=== PATIENT | male | born 1990 | race African-American/Black ===

== ENCOUNTER 2019-03-01 14:41 | Inpatient (IN) ==
[2019-03-01] MEDS ORDERED: NS 1,000 ML IV ONE ×2 (15:07→17:18)
[2019-03-01] MEDS ORDERED: DILAUDID IV ONE (15:18)
--- NOTE | 2019-03-01 15:26 | PROVIDER DOCUMENTATION ---
HPI-General Adult - General Chief Complaint: Abnormal Lab[s] Stated Complaint: LOW H&H Time Seen by Provider: 03/01/19 15:05 Source: patient Allergies/Adverse Reactions: Patient Allergies Allergy/AdvReac Type Severity Reaction Status Date / Time prednisone Allergy Unknown Verified 05/24/18 09:11 Home Medications: Home Medication List Medication Instructions Recorded Confirmed Last Taken Type Folic Acid 1 mg PO DAILY 06/27/17 03/01/19 01/06/19 History Hydroxyurea [Hydrea] 500 mg PO BID 06/27/17 03/01/19 01/06/19 History Cyclobenzaprine [Flexeril] 5 mg PO HS 05/24/18 03/01/19 01/05/19 History Hydrocodone/Acetaminophen [[place] 1 tab PO Q8H PRN PRN 10/15/18 03/01/19 01/06/19 History 10-325 Tablet] Fentanyl 12.5 each PO Q3DAYS 01/06/19 03/01/19 Unknown History - History of Present Illness -Gen Adult Nature of Presenting Problems: HPI: Pt reports to ED after PCP sent him here from hemoglobin of 3.3. Pt has PMH of sickel cell disease and crisis. He states that he he has had diffuse joint and body pain for the past month, was evaluated bt Dr eckert in late january, his H&H was above 7, and recieved 3 units of blood transfusion. He complained that his norco was not working, the next week, they started him on dilaudid but he suffered migraines, constipation, SOB and worsening of his fatigue. His Rx was changed again to percocet, but he contiuned to have fatigue, not able to walk up stairs in his house, SOB, feeling diffuse pain all over his body. His l;ast [place] cisis was jul 2018. Location of Pain/Injury: reports: head, upper extremity, lower extremity, generalized Pain Radiation: reports: arm(s), back, feet, legs (lower), shoulder(s), legs (upper) Quality of Pain: reports: aching, burning, cramping, dull Severity: reports: moderate Onset/Duration: reports: other (1 month) Context/Activities at Onset: reports: none Modifying Factors: improves with: movement. worse with: analgesics Associated Symptoms: reports: anxiety, arm pain, back/neck pain, constipation, fatigue, headaches, malaise, muscle aches Similar Symptoms Previously?: Yes Recently seen or treated by another doctor?: Yes Review of Systems - Adult - REVIEW OF SYSTEMS - ADULT Constitutional: reports: no symptoms reported Eyes: reports: no symptoms reported Ears, Nose, Mouth & Throat: reports: no symptoms reported Cardiovascular: reports: no symptoms reported Respiratory: reports: see HPI, shortness of breath Gastrointestinal: reports: no symptoms reported Genitourinary: reports: no symptoms reported Musculoskeletal: reports: see HPI, joint pain, muscle weakness Integumentary: reports: no symptoms reported Neurological: reports: no symptoms reported Psychiatric: reports: no symptoms reported Endocrine: reports: no symptoms reported Hematologic/Lymphatic: reports: no symptoms reported Allergic/Immunologic: reports: no symptoms reported All Other Systems: Reviewed and Negative Past History - Adult - PAST MEDICAL HISTORY-ADULT Review of Records: reports: Old Records Reviewed, Nursing Assessment Review, Medications Reviewed, Social history reviewed & non-contributory. Major Childhood Illnesses: reports: denies history Cardiovascular: reports: denies history Respiratory: reports: denies history Gastrointestinal: reports: GERD Obstetrical/Gynecological: reports: denies history Genitourinary: reports: denies history Musculoskeletal: reports: denies history Neurological: reports: denies history Endocrine/Immune: reports: Sickle Cell disease Sickle Cell Genotype:: Unknown Other Conditions: reports: denies history - PRIOR SURGERIES/PROCEDURES Surgical/Procedure History: reports: none - PRIOR HOSPITALIZATIONS Prior Hospitalizations: reports: for similar symptoms - IMMUNIZATION STATUS Childhood Immunizations: See Nurse Assessment Flu Vaccine: See Nurse Assessment - FAMILY HISTORY Family History: reviewed, not pertinent - SOCIAL HISTORY Smoking: denies Substance Use: none/never Alcohol Use Frequency: never Living Situation: family Physical Exam-General - PHYSICAL EXAM-ADULT Initial Vital Signs Reviewed: Yes - CONSTITUTIONAL General Appearance: appears well, alert - EYES Eyes: pink conjunctivae. negative: sclera injected, scleral icterus, subconjunctival hemorrhage - HEAD, EARS, NOSE, MOUTH & THROAT HENMT: normocephalic/atraumatic, moist mucous membranes, normal ENT inspection - NECK Neck: non-tender, full range of motion, supple - RESPIRATORY Respiratory: chest non-tender, lungs clear, normal breath sounds, no pleuratic chest pain. negative: crackles, rales, rhonchi, stridor, wheezing - CARDIOVASCULAR Cardiovascular: normal peripheral pulses, regular rate, rhythm, no edema - GASTROINTESTINAL (ABDOMEN) Abdominal Exam: normal bowel sounds, non tender, soft, no organomegaly. negative: distended, guarding, rigid, rebound, tenderness - LYMPHATIC Lymphatic: no adenopathy - MUSCULOSKELETAL Back Exam: decreased range of motion Extremity: normal inspection, calf tenderness, tenderness. negative: non- tender, normal gait - SKIN Integumentary: normal color, normal turgor, warm/dry - NEUROLOGIC Neurologic: grossly normal - PSYCHIATRIC Psych/Mental Status: normal mood/affect, normal thought content, normal thought process Progress - PLAN OF CARE/RESULTS Progress/Plan/Lab Results: Vital Signs - 8 hr 03/01/19 15:05 Temperature 98.8 F Pulse Rate 82 Respiratory Rate 20 Blood Pressure 133/84 O2 Sat by Pulse Oximetry 99 Orders Category Date Time Status Saline Loc NOW Care 03/01/19 15:05 Active CHEST-2 VIEWS [RAD] Stat Exams 03/01/19 15:05 Ordered BLOOD CULTURE [BLDCUL] Stat Lab 03/01/19 15:09 Uncollected CBC WITH ELECTRONIC DIFF [HEME] Stat Lab 03/01/19 15:05 Uncollected COMPREHENSIVE METABOLIC PANEL [CHEM] Stat Lab 03/01/19 15:05 Uncollected PRBC [LRPC (RED CELLS)] [BBK] Stat Lab 03/01/19 15:19 Uncollected PROTIME WITH INR [COAG] Stat Lab 03/01/19 15:18 Uncollected PTT [COAG] Stat Lab 03/01/19 15:18 Uncollected RETIC COUNT [HEME] Stat Lab 03/01/19 15:05 Uncollected TYPE & SCREEN [BBK] Stat Lab 03/01/19 15:18 Uncollected UA [URINALYSIS W/POSS RFLX CULT] [URINALYSIS] Stat Lab 03/01/19 15:09 Uncollected 0.9% Sodium Chloride Inj [Ns] 1,000 ml Med 03/01/19 15:07 Active IV 999 mls/hr Hydromorphone [Dilaudid] Med 03/01/19 15:18 Discontinued 1 mg IV NOW ONE EKG [EKG] Stat Ther 03/01/19 15:05 Ordered Result Diagrams: 03/01/19 15:20 03/01/19 15:20 - EKG 1 Time of EKG reading by physician:: 16:19 EKG Read and Signed by:: Micheal Butler EKG Interpretation (*Must complete 3 of following elements*): Normal Rate: 76 [place]: normal QRS: normal [place] Interval: normal ST Wave: normal Prior EKG Comparison: unchanged from prior - CONSULTS/PCP/HOSPITALIST Notification #1 *Consult/PCP/Hospitalist*: Jes SARMIENTO Time Discussed: 16:41 Consult Disposition: Admit Departure - Departure Date of Disposition Decision: 03/01/19 Time of Disposition Decision: 16:41 DIAGNOSIS: Acute sickle cell crisis Disposition: ADMITTED INPATIENT 09 Certified Medical Emergency: Emergent Condition: Stable - Critical Care Note This patient required my direct & personal management of CC.: No Attestation - Physician/ XAVIER Attestation Patient care was provided by Advanced Practice Provider:: No The physician spent face to face time with patient:: Yes Advanced Practice Provider documentation review:: Supervising physician onsite and consulted in the evaluation and care of this patient. The physician did have a face to face encounter with the patient.
[2019-03-01 16:11] LABS: URINE SOURCE CLEAN CATCH
[2019-03-01 16:20] LABS: BILIRUBIN URINE NEGATIVE (NEGATIVE); BLOOD URINE NEGATIVE (NEGATIVE); COLOR YELLOW; GLUCOSE URINE NEGATIVE (NEGATIVE); KETONE URINE NEGATIVE (NEGATIVE); LEUKOCYTES URINE NEGATIVE (NEGATIVE); NITRITE URINE NEGATIVE (NEGATIVE); PROTEIN URINE NEGATIVE (NEGATIVE); SP GRAVITY URINE 1.005; TURBIDITY URINE CLEAR (CLEAR); UROBILINOGEN URINE NORMAL (NORMAL)
[2019-03-01 16:23] LABS: AGAP 10; ALB/GLOB RATIO 0.8; ALBUMIN 3.7 g/dL (3.5-5.0); ALKALINE PHOSPHATASE 128 U/L (32-122); BUN 6 mg/dL (8-22); CALCIUM 8.4 mg/dL (8.8-10.2); CHLORIDE 104 mmol/L (98-107); COSMO 269; CREATININE 0.8 mg/dL (0.7-1.2); GLUCOSE 96 mg/dL (70-104); GOT 23 U/L (10-34); GPT 22 U/L (10-44); POTASSIUM 3.4 mmol/L (3.5-5.1); SODIUM 136 mmol/L (136-145); TCO2 22 mmol/L (25-35); TOTAL BILIRUBIN 0.62 mg/dL (0.20-1.00); TOTAL PROTEIN 8.1 g/dL (6.3-8.3)
[2019-03-01 16:26] LABS: INR 1.03; PROTIME 14.4 Seconds (11.0-16.0)
[2019-03-01 16:27] LABS: PTT 32.7 Seconds (22.3-41.8)
[2019-03-01 16:28] LABS: UR EPITHELIAL CELLS <10 /HPF (<10); URINE BACTERIA NEGATIVE /HPF; URINE RBC <10 /HPF (<10); URINE WBC <10 /HPF (<10)
[2019-03-01 16:29] LABS: HEMATOCRIT 9.7 % (42.0-52.0); LYMPH# 2.15 X1000 (1.2-3.4); LYMPH% 77.1 % (20.5-51.1); MCH 34.7 PG (27-31); MCHC 35.1 g/dL (33-37); MONO# 0.19 X1000 (0.11-0.59); MONO% 6.8 % (1.7-9.3); MPV 10.9 FL (7.4-10.4); NEUT% 16.1 % (42.2-75.2); PLT 116 X1000 (130-400); RETIC% 3.53 % (0.8-2.1); RETIC-HE 29.8 PG (28.2-36.6); WBC 2.79 X1000 (4.8-10.8)
[2019-03-01 16:30] LABS: HEMOGLOBIN 3.4 g/dL (14.0-18.0)
[2019-03-01] MEDS ORDERED: TYLENOL PO PRN (17:25)
[2019-03-01] MEDS ORDERED: ZOFRAN IV PRN (17:25)
[2019-03-01] MEDS ORDERED: NORCO-7.5 PO PRN (17:25)
--- NOTE | 2019-03-01 17:30 | Diag Imaging Result Doc PS360 ---
EXAM: CHEST-2 VIEWS INDICATION: Sickle cell pt low H H TECHNIQUE: 2 views COMPARISON: 06/27/2017 FINDINGS: The lungs are grossly clear. There is no discrete pleural fluid collection or pneumothorax. The cardiomediastinal silhouette and central vasculature are grossly unremarkable. IMPRESSION: No evidence of acute pathology by plain radiograph. Electronically signed by Thiago Mahan 03/01/2019 5:28 PM
[2019-03-01] MEDS ORDERED: NORCO-10 PO PRN (18:41)
[2019-03-01] MEDS ORDERED: NS 2,000 ML IV ONE (19:09)
[2019-03-01 19:15] LABS: FERRITIN 1214 ng/mL (30-400)
[2019-03-01] MEDS ORDERED: DILAUDID IV PRN (20:00)
[2019-03-01] MEDS: DILAUDID IV PRN (20:36)
--- NOTE | 2019-03-01 20:36 | HISTORY AND PHYSICAL ---
PRIMARY CARE PROVIDER: No one. PRIMARY DIAMOND SAWER: Dr. Porras. CHIEF COMPLAINT: Shortness of breath, chest pain and headache, along with weakness. HISTORY OF PRESENT ILLNESS: Mr. Norman Crawford is a 28-year-old male with a medical history of sickle cell disease who presents with 1-month complaints of significant shortness of breath, headache and chest pain, along with weakness. He states that last month his hemoglobin was 7, and he did not want to receive blood, but on average he receives blood about once every other month. They decided to do IV fluids at that time, and he said that that made him feel better, but the pain he was having in the knee joints and elbow joints along with the chest was starting to get worse. They added oral Dilaudid, which he felt like did not help. They tried Percocet, which he felt helped a little bit better, but really the only thing that helped was when he received IV fluids, but it would not last. Today he went to Dr. Porras's office and was found to have a hemoglobin of 3 and was sent here. He also states that he has had subjective fevers for at least 1-2 weeks, waking up in cold sweats, coughing up clear to green phlegm. A chest x-ray does not show anything acute. Likely all of his symptoms are due to the low hemoglobin. He also has some complaints of constipation, and we will treat that as well. We will admit him to the CICU for close observation, given the complaints of chest pain that he is having with it. PAST MEDICAL HISTORY: 1. Sickle cell anemia. 2. Sickle cell hepatopathy. PAST SURGICAL HISTORY: Cholecystectomy. SOCIAL HISTORY: Denies tobacco, alcohol or illicit drug use. Single. Lives alone in [place]. Unemployed. FAMILY HISTORY: Both parents with sickle cell disease. Mother is . Father is still living. He has a brother with sickle cell trait. Otherwise, he states there are no other medical conditions that run in the family. ALLERGIES: Steroids. He states these cause him to get dehydrated and start a crisis. HOME MEDICATIONS: 1. Fentanyl 12.5 mg transdermal every 3 days. 2. Flexeril 5 mg p.o. nightly. 3. Folic acid 1 mg p.o. daily . 4. Hydroxyurea 500 mg p.o. twice daily. 5. [place] 10, 1 tab p.o. every 4 hours p.r.n. REVIEW OF SYSTEMS: A 14-point review of systems was completed. All are negative except for those mentioned in the above HPI. PHYSICAL EXAMINATION: VITAL SIGNS: Temperature 98.0, heart rate 81, respiratory rate 18, blood pressure 127/70, O2 saturation 99% on room air. GENERAL: Mr. Norman Crawford is a 28-year-old male. He is in no acute distress. He is able to answer questions appropriately. HEENT: Atraumatic, normocephalic. Pupils equal, round, and reactive to light. Extraocular movements intact. Mucous membranes are dry. NECK: Trachea midline. CARDIOVASCULAR: S1 and S2. Regular rate and rhythm. No rubs, gallops or murmurs. No lower extremity edema and +2 dorsalis and radial pulses. Negative for JVD or carotid bruits. PULMONARY: Clear to auscultate. Bilateral breath sounds. No accessory muscle use or work of breathing noted. GI: Soft, nontender, nondistended. Positive bowel sounds x4. EXTREMITIES: Moves all extremities equally. Full range of motion. NEUROLOGIC: A O x3. Follows commands. Sensory is intact. SKIN: Warm, dry and intact. LABORATORY DATA: White blood cells 2000, hemoglobin 3.4, hematocrit 9.7, platelet count 116. INR is 1.03. Sodium 136, potassium 3.4, BUN 6, creatinine 0.8, glucose 96. Calcium 8.4, bilirubin 0.62. AST 23, ALT 22, albumin 3.7. Urinalysis negative. IMAGING: Chest x-ray: no evidence of acute pathology. ASSESSMENT/PLAN: 1. Sickle cell crisis with hemoglobin of 3.4. He will be getting 2 units of packed red blood cells. He normally gets a blood transfusion every other month. He states he had a hemoglobin of 7 last month. Given the symptoms that are going along with it, like the shortness of breath and the chest pain, we will watch him in the cardiac intensive care unit for transfusion. His vital signs are stable. 2. Complaints of constipation. Will add a stool softener. 3. Pain control for the sickle cell crisis will include his transdermal fentanyl 12.5 every 3 days, [place] 10 every 8 hours p.r.n., and Dilaudid for breakthrough pain at 1 mg IV every 3 hours. He is also going to be on his hydroxyurea. Dr. Porras is consulted. Dictated by GUILLERMINA Aguilar for Dilshad Braga MD cc: GUILLERMINA Aguilar MD I agree with most components of history, physical, assessment and plan. A separate addendum has been dictated. MTDD
--- NOTE | 2019-03-01 20:53 | HISTORY AND PHYSICAL ---
ADDENDUM: I agree with most components of history, physical, assessment and plan. In brief Mr. Crawford is 28 years old man with past medical history of sickle cell disease with frequent priapism who has been experiencing little aches and pains in his body though not like the sickle cell crisis he usually experiences for a month and he had a routine appointment with his canine deputy as an outpatient. When he was evaluated, he was found to have hemoglobin of less than 4 and so he was advised to come to the emergency room for admission. SUBJECTIVE: At the time of my evaluation he complains of little bit of body ache but not a lot. Vitals suggest temperature of 98 degrees, pulse of 86, respiratory 22, blood pressure 160/87, saturating 99% on room air. PHYSICAL EXAMINATION: Well-built man not in acute distress. Significant conjunctival pallor. No cyanosis, clubbing or icterus. Air entry bilateral equal. No wheeze, rhonchi, crackles. S1, S2 normal. No murmur or gallop. Abdomen is soft. No hepatosplenomegaly. No lower extremity edema. LABS: Suggestive of pancytopenia with neutrophil count less than 500 for which I would put him on neutropenic precautions, hypokalemia. He had 2 units of blood transfusion ordered. ASSESSMENT AND PLAN: 1. Pancytopenia likely because of sickle cell crisis with bone marrow involvement. 2. Chronic pain. PLAN: I will continue hydration of the patient with intravenous fluids. Will follow up with CBC after blood transfusion. We will keep him on his home pain medication regimen with fentanyl patch, [place] as well as IV pain medication. Plan of care discussed with the patient. All of his questions have been answered satisfactorily. cc: Dilshad Braga MD MTD
[2019-03-01 20:56] LABS: IRON SATURATION 96 %; TIBC 247 ug/dL; TOTAL IRON 237 ug/dL (53-167); UNBOUND IRON 10 ug/dL (112-346)
[2019-03-01] MEDS ORDERED: FLEXERIL PO SCH (21:00)
[2019-03-01] MEDS: HYDREA PO SCH (22:40)
[2019-03-01] MEDS: PERICOLACE PO SCH (22:41)
[2019-03-02] MEDS: DILAUDID IV PRN ×6 (01:16→20:33)
[2019-03-02 01:55] LABS: HEMATOCRIT 16.1 % (42.0-52.0); HEMOGLOBIN 5.4 g/dL (14.0-18.0)
[2019-03-02 05:55] LABS: INR 1.01; PROTIME 14.2 Seconds (11.0-16.0); PTT 30.1 Seconds (22.3-41.8)
[2019-03-02 06:10] LABS: AGAP 11; ALB/GLOB RATIO 0.7; ALBUMIN 3.2 g/dL (3.5-5.0); ALKALINE PHOSPHATASE 114 U/L (32-122); BUN 7 mg/dL (8-22); CALCIUM 8.2 mg/dL (8.8-10.2); CHLORIDE 107 mmol/L (98-107); COSMO 275; CREATININE 0.6 mg/dL (0.7-1.2); ESTIMATED GFR > 60; GLUCOSE 91 mg/dL (70-104); GOT 20 U/L (10-34); GPT 19 U/L (10-44); LDH 266 U/L (135-225); MAGNESIUM 1.7 mg/dL (1.5-2.7); POTASSIUM 3.9 mmol/L (3.5-5.1); SODIUM 139 mmol/L (136-145); TCO2 21 mmol/L (25-35); TOTAL BILIRUBIN 1.62 mg/dL (0.20-1.00); TOTAL PROTEIN 7.5 g/dL (6.3-8.3)
[2019-03-02 06:18] LABS: HEMATOCRIT 18.6 % (42.0-52.0); HEMOGLOBIN 6.5 g/dL (14.0-18.0); LYMPH# 2.14 X1000 (1.2-3.4); LYMPH% 83.6 % (20.5-51.1); MCH 31.3 PG (27-31); MCHC 34.9 g/dL (33-37); MCV 89.4 FL (81-99); MONO# 0.11 X1000 (0.11-0.59); MONO% 4.3 % (1.7-9.3); MPV 11.5 FL (7.4-10.4); NEUT# 0.31 X1000 (1.4-6.5); NEUT% 12.1 % (42.2-75.2); PLT 107 X1000 (130-400); RBC 2.08 XMIL (4.7-6.1); RDW 20.1 % (11.5-14.5); WBC 2.56 X1000 (4.8-10.8)
--- NOTE | 2019-03-02 08:31 | EKG Report ---
Test Performed on : 03/01/2019 4:19:06 PM Test Reason : sickel cell crisis Blood Pressure : / mmHG Vent. Rate : 076 BPM Atrial Rate : 076 BPM P-R Int : 156 ms QRS Dur : 080 ms QT Int : 398 ms P-R-T Axes : 051 030 034 degrees QTc Int : 447 ms Normal sinus rhythm. with sinus arrhythmia. Normal ECG When compared with ECG of 28-JUN-2017 15:14, Vent. rate has increased BY 29 BPM Unconfirmed Result
[2019-03-02] MEDS ORDERED: FOLIC ACID PO SCH (09:00)
--- NOTE | 2019-03-02 13:02 | PROGRESS NOTE ---
DATE: 03/02/2019 INTERVAL HISTORY: Mr. Crawford received 2 units of blood transfusion overnight following which his hemoglobin had increased to 6.5. He did not have any reaction. SUBJECTIVE: He is feeling fine. Denies any complaints. VITALS: Temperature 98.1 degrees, pulse 94, and respiratory rate 18. His blood pressure is 116/73 and saturating 100% on room air. PHYSICAL EXAMINATION: Not in any acute distress. Mild conjunctival pallor. No cyanosis, clubbing, or icterus. Oral cavity is moist.Lungs: Air entry bilaterally equal. No wheeze, rhonchi or crackles. Heart: S1, S2 normal. No murmur or gallop. Abdomen: Soft, nontender. Extremities: No lower extremity edema. No hepatosplenomegaly. Neurologic: He is alert and oriented x3. LABORATORY: Suggestive of hemoglobin of 6.5, WBC of 2.5, and platelets of 107,000. ASSESSMENT AND PLAN: 1. Pancytopenia in the setting of bone marrow involvement with sickle cell crisis. 2. Chronic pain related to sickle cell crisis. 3. Constipation. PLAN: 1. He is status post 2 units PRBC with appropriate rise of CBC. I will continue his home folic acid and hydroxyurea. I will stop intravenous fluids. I will continue his home medication of fentanyl patch, cyclobenzaprine, acetaminophen and [place] for pain. I will continue senna docusate for constipation. 2. Disposition: I am awaiting Hematology recommendation. Based on that, I will consider discharging the patient today or later tomorrow. Plan of care discussed with him. All of his questions have been answered. cc: Dilshad Braga MD
[2019-03-02] MEDS: HYDREA PO SCH (16:23)
[2019-03-02] MEDS: PERICOLACE PO SCH (16:23)
[2019-03-02 19:20] LABS: HEMATOCRIT 24.2 % (42.0-52.0); HEMOGLOBIN 8.5 g/dL (14.0-18.0); LYMPH# 1.74 X1000 (1.2-3.4); LYMPH% 75.3 % (20.5-51.1); MCH 30.1 PG (27-31); MCHC 35.1 g/dL (33-37); MCV 85.8 FL (81-99); MONO# 0.23 X1000 (0.11-0.59); MPV 11.1 FL (7.4-10.4); NEUT% 14.7 % (42.2-75.2); PLT 112 X1000 (130-400); RBC 2.82 XMIL (4.7-6.1); WBC 2.31 X1000 (4.8-10.8)
[2019-03-02 19:21] LABS: NEUT# 0.34 X1000 (1.4-6.5)
[2019-03-02 20:47] VITALS: BP 123/87
--- NOTE | 2019-03-02 23:35 | DISCHARGE SUMMARY ---
ADMISSION DATE: 03/01/2019 DISCHARGE DATE: 03/02/2019 DISCHARGE DISPOSITION: Home. DISCHARGE DIAGNOSES: 1. Pancytopenia. 2. Sickle cell crises. 3. Anemia in the setting of sickle cell crisis, requiring blood transfusion. 4. Constipation. OTHER DIAGNOSES: 1. History of sickle cell disease. 2. History of multiple priapism. 3. History of cholecystectomy. CONSULTATIONS: Dr. Rafi Porras, hematology/oncology. VITALS: At the time of discharge, temperature 97.9 degrees, pulse 71, respiratory rate 16, blood pressure 130/83, saturating 97% on room air. PHYSICAL EXAMINATION: General: Obese, not in any acute distress. HEENT: Oral cavity is moist. He did have conjunctival pallor on examination early in the morning. Lungs: Air entry bilaterally equal. No wheeze, rhonchi, crackles. Cardiovascular: S1, S2 normal. No murmur, rub, or gallop. Abdomen: Soft, nontender. Neurologic: He was alert, oriented x3. LABS: Significant labs during hospital admission. On arrival, his hemoglobin was 3.4, and he has had 5 units of blood transfusion, at the time of discharge his hemoglobin had increased to more than 7. Significant microbiology lab during hospital admission, blood culture did not have any growth. IMAGING: Chest x-ray on admission did not have any acute pathology. DISCHARGE MEDICATIONS: Fentanyl 12.5 mcg patch every 3 days, cyclobenzaprine 5 mg at nighttime, folic acid 1 mg daily, hydroxyurea 500 mg b.i.d., [place] 10 one tablet every 8 hours as needed, Senn[place] docusate 1 tablet p.o. b.i.d. HOSPITAL COURSE SUMMARY: Mr. Crawford is 28 years man with history of sickle cell disease who was seen in his orchid grower, Dr. Porras's, office a month ago because of generalized body aches and pains, and he was given intravenous fluids and he was discharged home. However, his aches and pains were not getting better and there were multiple changes made in his pain medication regimen. For another scheduled visit a month later blood work was done, which had detected hemoglobin of 3.5, so he was advised to go to the emergency room for blood transfusion. He was admitted overnight, was given total of 5 units of blood. During blood transfusion, he did not have any allergic reactions. He tolerated the transfusions well. Following transfusions, his hemoglobin had increased appropriately and he was deemed appropriate for discharge. For his body aches and pains, he was continued on his home medications of narcotics and muscle relaxants. He was also given stool softeners at the time of discharge. TIME SPENT: Less than 30 minutes were spent in discharging the patient. cc: Dilshad Braag MD
[2019-03-04] MEDS ORDERED: DURAGESIC 12 MICROGM/HR PATCH TD SCH (06:00)
== END 2019-03-02 20:48 | disposition home or self-care (01) | DRG 812 ==
LOC: SUPCPDRO → ED 14:41 → EDIPHOLD 18:29
PROVIDERS: ATTEND Internal Medicine
CPT/HCPCS: 36430; 71020; 71046; 80053; 81001; 82607; 82728; 82746; 83010; 83540; 83550; 83615; 83735; 85014; 85018; 85025; 85045; 85610; 85730; 86850; 86870; 86900; 86901; 86905; 86920; 86922; 87040; 93005; 96374; 96376; 99285; A9270; J1170; J7030; P9016; S0176

== ENCOUNTER 2020-01-09 12:54 | Inpatient (IN) ==
[2020-01-09] MEDS ORDERED: NS 1,000 ML IV ONE (16:04)
--- NOTE | 2020-01-09 16:19 | PROVIDER DOCUMENTATION ---
HPI-General Adult - General Chief Complaint: Sickle Cell Crisis Stated Complaint: SORE THROAT/SICKLE CELL CRISIS Time Seen by Provider: 01/09/20 16:03 Source: patient Allergies/Adverse Reactions: Patient Allergies Allergy/AdvReac Type Severity Reaction Status Date / Time prednisone Allergy Unknown Verified 01/09/20 17:04 Home Medications: Home Medication List Medication Instructions Recorded Confirmed Last Taken Type Folic Acid 1 mg PO DAILY 06/27/17 01/09/20 01/09/20 07:00 History Cyclobenzaprine [Flexeril] 5 mg PO HS 05/24/18 01/09/20 01/08/20 21:00 History Sennosides/Docusate Sodium 1 ea PO BID #30 tab 03/02/19 01/09/20 01/09/20 07:00 Rx [Pericolace] Potassium Chloride 20 meq PO DAILY 10/04/19 01/09/20 01/09/20 07:00 History Fentanyl 50 mcg SUBDERMAL Q3D 12/12/19 01/09/20 01/09/20 07:00 History Oxycodone HCl/Acetaminophen 1 tab PO Q6H PRN 12/12/19 01/09/20 01/09/20 12:00 History [Oxycodone-Acetaminophen 10-325] - History of Present Illness -Gen Adult Nature of Presenting Problems: 29 year old AA Male pmh significant for sickle cell disease presenting to the ED sent by his PCP Dr. Kaplan for admission to the hospital for suspected sickle cell crises. The patient is complaining of a sore throat that began 4 days ago and has progressively worsened and is associated with a fever of 104 and chills. Review of Systems - Adult - REVIEW OF SYSTEMS - ADULT Constitutional: reports: chills, fever (104 yesterday per os), fatique, night sweats, other (diffuse body aches) Eyes: reports: no symptoms reported Ears, Nose, Mouth & Throat: reports: throat pain Cardiovascular: reports: chest pain, palpitations Respiratory: denies: chronic cough, cough, dyspnea on exertion, hemoptysis, shor tness of breath, wheezing Gastrointestinal: reports: abdominal pain, difficulty swallowing. denies: hematemesis, constipation, diarrhea, nausea, vomiting Genitourinary: denies: dysuria, discharge, frequency, frequent UTI's, hematuria, incontinence, urinary retention Musculoskeletal: reports: joint pain, muscle aches Integumentary: reports: no symptoms reported Neurological: denies: ataxia, loss of balance Psychiatric: reports: no symptoms reported Endocrine: reports: no symptoms reported Hematologic/Lymphatic: reports: swollen lymph nodes (submandibular) Allergic/Immunologic: reports: no symptoms reported All Other Systems: Reviewed and Negative Past History - Adult - PAST MEDICAL HISTORY-ADULT Review of Records: reports: Old Records Reviewed, Nursing Assessment Review, Medications Reviewed, Social history reviewed & non-contributory. Major Childhood Illnesses: reports: denies history Cardiovascular: reports: denies history Respiratory: reports: denies history Gastrointestinal: reports: GERD Obstetrical/Gynecological: reports: denies history Genitourinary: reports: denies history Musculoskeletal: reports: denies history Neurological: reports: denies history Endocrine/Immune: reports: Sickle Cell disease Sickle Cell Genotype:: Unknown Other Conditions: reports: denies history - PRIOR SURGERIES/PROCEDURES Surgical/Procedure History: reports: none - PRIOR HOSPITALIZATIONS Prior Hospitalizations: reports: for similar symptoms - IMMUNIZATION STATUS Childhood Immunizations: See Nurse Assessment Flu Vaccine: See Nurse Assessment - FAMILY HISTORY Family History: reviewed, not pertinent - SOCIAL HISTORY Smoking: denies Substance Use: none/never Alcohol Use Frequency: never Physical Exam-General - PHYSICAL EXAM-ADULT Initial Vital Signs Reviewed: Yes (sinus tachycardia) - CONSTITUTIONAL General Appearance: alert, mild distress - EYES Eyes: PERRL/EOMI, pale conjunctivae, scleral icterus - HEAD, EARS, NOSE, MOUTH & THROAT HENMT: normocephalic/atraumatic, TMs normal, other (white exudate on the posterior soft palate) - NECK Neck: full range of motion, supple, normal inspection, lymphadenopathy (at the bilateral angle of the mandible left side worse than right). negative: Brudzinski's sign, C-spine tenderness, meningismus - RESPIRATORY Respiratory: lungs clear, normal breath sounds, no respiratory distress - CARDIOVASCULAR Cardiovascular: normal peripheral pulses, no edema, no gallop, no JVD, tachycardia (sinus tachycardia), systolic murmur (grade 2/6 WENDY best heard at the left lower sternal border with no radiation to the neck) - GASTROINTESTINAL (ABDOMEN) Abdominal Exam: normal bowel sounds, soft - LYMPHATIC Lymphatic: cervical node tenderness, enlargement (at the angle of the mandible left side worse than right) - MUSCULOSKELETAL Back Exam: normal inspection Extremity: normal gait Peripheral Pulses: radial (R): 2+, radial (L): 2+ - SKIN Integumentary: warm/dry, other (capillary refill greater than 2 seconds) - NEUROLOGIC Neurologic: grossly normal, no motor/sensory deficits - PSYCHIATRIC Psych/Mental Status: normal mood/affect, normal thought process, oriented x 3, anxious Progress - PLAN OF CARE/RESULTS Progress/Plan/Lab Results: Vital Signs - 8 hr 01/09/20 13:05 Temperature 98.3 F Pulse Rate 124 H Respiratory Rate 20 Blood Pressure 124/82 O2 Sat by Pulse Oximetry 95 Orders Category Date Time Status NEWS Score 2-4:Order NEWS Lactate Series NOW Care 01/09/20 13:08 Active CHEST-1 VIEW [RAD] Stat Exams 01/09/20 16:04 Ordered CBC WITH ELECTRONIC DIFF [HEME] Stat Lab 01/09/20 16:03 Uncollected COMPREHENSIVE METABOLIC PANEL [CHEM] Stat Lab 01/09/20 16:03 Uncollected LACTATE, PLASMA [CHEM] Q3H Lab 01/09/20 13:15 Uncollected LACTATE, PLASMA [CHEM] Q3H Lab 01/09/20 16:15 Uncollected LACTATE, PLASMA [CHEM] Q3H Lab 01/09/20 19:15 Uncollected PROTIME WITH INR [COAG] Stat Lab 01/09/20 16:03 Ordered PTT [COAG] Stat Lab 01/09/20 16:03 Ordered RETIC COUNT [HEME] Stat Lab 01/09/20 16:07 Uncollected TROPONIN T HIGH SENSITIVITY Stat Lab 01/09/20 16:04 Uncollected 0.9% Sodium Chloride Inj [Ns] 1,000 ml Med 01/09/20 16:04 Active IV 999 mls/hr EKG [EKG] Stat Ther 01/09/20 16:03 Ordered Result Diagrams: 01/09/20 16:35 01/09/20 16:35 - XRAY 1 XRAY Study: Chest Impression: Normal, See EMR Report (EXAM: CHEST-1 VIEW 01/09/2020 HISTORY: Rule out Sickle Cell crisis TECHNIQUE: AP upright portable at 1618 COMMENT: The inspiration is slightly less optimal than on 03/01/2019, otherwise are has been no significant change. IMPRESSION: Stable chest. Electronically signed by Gerardo Smith 01/09/2020 4:24 PM 01/09/20 1624 Interpreting Physician: Gerardo Smith MD Dictated Date/Time: 01/09/20 1623 cc: Steven Monaco DO; Rafi Porras MD) - CT/MRI 1 CT Study: Abdomen, Pelvis Impression: Abnormal, See EMR Report (EXAM: CT ABDOMEN/PELVIS W/O CONTRAST HISTORY: Abdominal pain TECHNIQUE: CT abdomen and pelvis without oral or intravenous contrast COMPARISON: 09/19/2012 FINDINGS: The gallbladder has been removed. No focal hepatic abnormality identified on this noncontrasted exam. The spleen is very small and calcified. No inflammation about the pancreas. Normal adrenal glands. No renal stones. No hydronephrosis. Normal aorta. No bowel obstruction. No inflammation about the cecum. No abscess. The urinary bladder is moderately distended and normal. Normal prostate. IMPRESSION: 1.Cholecystectomy 2.Fatty infiltration of the liver This exam was performed using automated exposure control, adjustment of mA or kV according to patient size, and/or use of iterative reconstruction technique. Electronically signed by Red Sanchez 01/09/2020 7:25 PM 01/09/201924 Interpreting Physician: Red Sanchez MD Dictated Date/Time: 01/09/20 192 cc: Steven Monaco DO; Rafi Porras MD) - CONSULTS/PCP/HOSPITALIST Notification #1 *Consult/PCP/Hospitalist*: Dr. Beard Time Discussed: 20:01 (Will accept for observation) Reason/Comments: Intractable pain, Chronic sickle cell disease, fever, Consult Disposition: Will see in ED, other (Admit observation) Departure - Departure Date of Disposition Decision: 01/09/20 Time of Disposition Decision: 20:00 (Admit observation) DIAGNOSIS: Sinus tachycardia, Bandemia, Reactive thrombocytosis, Fatty liver disease, nonalcoholic, Intractable pain Sickle cell anemia Qualifiers: Sickle-cell associated disorders: without crisis Qualified Code(s): D57.1 - Sickle-cell disease without crisis Disposition: ADMITTED INPATIENT 09 Certified Medical Emergency: Emergent Condition: Fair Referrals and Follow-Ups: Rafi Porras MD [Primary Care Provider] - Discharge Education: Steps to Quit Smoking, Tmmo-si-Ital - Critical Care Note This patient required my direct & personal management of CC.: No Attestation - Physician/ XAVIER Attestation Patient care was provided by Advanced Practice Provider:: No The physician spent face to face time with patient:: Yes Advanced Practice Provider documentation review:: Supervising physician onsite and consulted in the evaluation and care of this patient. The physician did have a face to face encounter with the patient.
[2020-01-09] MEDS ORDERED: DILAUDID IV ONE (16:20)
[2020-01-09] MEDS ORDERED: ZOFRAN IV ONE (16:21)
--- NOTE | 2020-01-09 16:26 | Diag Imaging Result Doc PS360 ---
EXAM: CHEST-1 VIEW 01/09/2020 HISTORY: Rule out Sickle Cell crisis TECHNIQUE: AP upright portable at 1618 COMMENT: The inspiration is slightly less optimal than on 03/01/2019, otherwise are has been no significant change. IMPRESSION: Stable chest. Electronically signed by Gerardo Smith 01/09/2020 4:24 PM
[2020-01-09 17:06] LABS: INR 1.14; PROTIME 14.8 Seconds (11.0-16.0)
[2020-01-09 17:07] LABS: PTT 39.7 Seconds (22.3-41.8)
[2020-01-09 17:16] LABS: BASO# 0.23 X1000 (0.0-0.2); BASO% 0.9 % (0.0-0.8); EOS# 0.32 X1000 (0.0-0.7); EOS% 1.3 % (0.0-10.0); HEMATOCRIT 28.4 % (42.0-52.0); HEMOGLOBIN 9.6 g/dL (14.0-18.0); IMM GRAN# 0.11 X1000 (0.0-0.04); IMM GRAN% 0.4 % (0.0-0.5); LYMPH# 5.34 X1000 (1.2-3.4); LYMPH% 21.5 % (20.5-51.1); MCH 30.8 PG (27-31); MCHC 33.8 g/dL (33-37); MONO# 3.35 X1000 (0.11-0.59); MONO% 13.5 % (1.7-9.3); MPV 10.7 FL (7.4-10.4); NEUT# 15.53 X1000 (1.4-6.5); NEUT% 62.4 % (42.2-75.2); PLT 421 X1000 (130-400); RBC 3.12 XMIL (4.7-6.1); RDW 17.8 % (11.5-14.5); RETIC% 15.94 % (0.8-2.1); RETIC-HE 30.1 PG (28.2-36.6); WBC 24.88 X1000 (4.8-10.8)
[2020-01-09 17:22] LABS: AGAP 15; ALB/GLOB RATIO 0.7; ALBUMIN 3.9 g/dL (3.5-5.0); ALKALINE PHOSPHATASE 174 U/L (32-122); BUN 14 mg/dL (8-22); CALCIUM 9.1 mg/dL (8.8-10.2); CHLORIDE 103 mmol/L (98-107); COSMO 276; ESTIMATED GFR > 60; GLUCOSE 96 mg/dL (70-104); GOT 51 U/L (10-34); GPT 38 U/L (10-44); POTASSIUM 4.1 mmol/L (3.5-5.1); SODIUM 138 mmol/L (136-145); TCO2 20 mmol/L (25-35); TOTAL BILIRUBIN 3.23 mg/dL (0.20-1.00); TOTAL PROTEIN 9.3 g/dL (6.3-8.3)
--- NOTE | 2020-01-09 19:27 | Diag Imaging Result Doc PS360 ---
EXAM: CT ABDOMEN/PELVIS W/O CONTRAST HISTORY: Abdominal pain TECHNIQUE: CT abdomen and pelvis without oral or intravenous contrast COMPARISON: 09/19/2012 FINDINGS: The gallbladder has been removed. No focal hepatic abnormality identified on this noncontrasted exam. The spleen is very small and calcified. No inflammation about the pancreas. Normal adrenal glands. No renal stones. No hydronephrosis. Normal aorta. No bowel obstruction. No inflammation about the cecum. No abscess. The urinary bladder is moderately distended and normal. Normal prostate. IMPRESSION: 1.Cholecystectomy 2.Fatty infiltration of the liver This exam was performed using automated exposure control, adjustment of mA or kV according to patient size, and/or use of iterative reconstruction technique. Electronically signed by Red Sanchez 01/09/2020 7:25 PM
[2020-01-09 20:10] LABS: URINE SOURCE CLEAN CATCH
[2020-01-09 20:14] LABS: BILIRUBIN URINE NEGATIVE (NEGATIVE); BLOOD URINE NEGATIVE (NEGATIVE); COLOR YELLOW; GLUCOSE URINE NEGATIVE (NEGATIVE); KETONE URINE NEGATIVE (NEGATIVE); LEUKOCYTES URINE NEGATIVE (NEGATIVE); NITRITE URINE NEGATIVE (NEGATIVE); PROTEIN URINE 70 mg/dL (NEGATIVE); SP GRAVITY URINE 1.014; TURBIDITY URINE CLEAR (CLEAR); UROBILINOGEN URINE 4 mg/dL (NORMAL)
[2020-01-09 20:15] LABS: UR EPITHELIAL CELLS <10 /HPF (<10); URINE BACTERIA NEGATIVE /HPF; URINE RBC <10 /HPF (<10); URINE WBC <10 /HPF (<10)
[2020-01-09] MEDS ORDERED: PEPCID PO ONE (20:37)
[2020-01-09] MEDS ORDERED: TORADOL IV ONE (20:37)
[2020-01-09] MEDS ORDERED: ROCEPHIN 1 GM in NS 50 ML IV ONE (20:37)
[2020-01-09] MEDS ORDERED: DURAGESIC 50 MICROGM/HR PATCH TD SCH (21:41)
--- NOTE | 2020-01-09 21:45 | HISTORY AND PHYSICAL ---
PRIMARY CARE PROVIDER: Rafi Porras MD REASON FOR ADMISSION: Sore throat for 4 days and diffuse body aches and pains for 3 days. HISTORY OF PRESENT ILLNESS: Mr. Norman Crawford is a 29-year-old male with sickle cell disease, reported to his [facility] care center manager's office today with a 4-day history of sore throat and 3-day history of diffuse body aches consistent with his normal crisis pain. He was referred to the ER and he was evaluated and we were consulted to evaluate him for admission. The patient states that he has not had any upper respiratory symptoms, but he has had a 4-day history of sore throat with odynophagia and fever of 104 yesterday. He says he still has some mild shortness of breath, which he says normally occurs with his crisis and subsequent diffuse body aches 1 day following the onset of the sore throat. He denies any GI or complaints. He denies any is focal chest pain. He denies any focal neurological complaints of visual symptoms or neck stiffness. No arthralgias. No rash. He denies any contacts with anybody with respiratory illnesses. REVIEW OF SYSTEMS: Twelve system review was done. Positive findings as per HPI. ALLERGIES: To prednisone. HOME MEDICATION: This patient is on Flexeril 5 mg at bedtime, folic acid 1 mg daily, oxycodone 1 mg q.6 p.r.n., potassium chloride 20 mEq daily, senna Plus 1 b.i.d. SURGICAL HISTORY: Notable for cholecystectomy. FAMILY HISTORY: Mother had sickle cell trait. Father had sickle cell disease. SOCIAL HISTORY: Does not smoke, drink or do drugs. LABORATORY WORK: White count 24,000. Hemoglobin and hematocrit 9 and 28. Platelets 421,000. Normal neutrophil count. BUN is 14, creatinine 1.0, bilirubin is 3.2, AST 51, ALT 38, alkaline phosphatase 174, total protein 9.3. PTT is normal. Urinalysis 70 protein. Chest film grossly normal. CT of the abdomen shows fatty liver disease. Flu swab and strep swab both negative. PHYSICAL EXAMINATION: VITAL SIGNS: Heart rate 110, blood pressure 137/92, respiratory rate 16, temperature is 98.3 degrees. He has 97% on O2 saturation on room air. GENERAL: He is a young man, in mild distress from his pain. He is alert and oriented x3. Normal mood and affect. HEENT: Head is normocephalic, atraumatic. Eyes REJI. EOMI. Sclerae intact, not pale. ENT oral exam is notable for white exudates on the posterior pharyngeal wall and soft palate with some mild erythema. No signs of cyanosis. NECK: Is supple with mild tenderness emanating from mild shotty tender mobile cervical lymph nodes. No visual thyromegaly noted. CHEST: Clear to auscultation. Good air entry in both lung martin. CARDIOVASCULAR: First and second heart sounds heard. No gallops, rubs. Rhythm is regular. ABDOMEN: Full, soft, nontender. No organomegaly. Bowel sounds are hypoactive. RECTAL: Deferred at this time. EXTREMITIES: Good distal pulse volumes, regular, symmetrical. No edema, clubbing or cyanosis. NEURO SYSTEM: No gross deficit. No gross focal deficits. SKIN: Is intact. No breakdown, lesion, erythema. MUSCULOSKELETAL: Exam is grossly normal. ASSESSMENT: 1. Sickle-cell crisis. 2. Acute pharyngitis, viral versus bacterial. 3. Anemia. 4. Liver disease. PLAN: The patient will be treated with Rocephin after 1 g pending throat cultures, blood cultures. We will treat patient symptomatically for pain and other symptoms as they arise. Consult Dr. Porras to see the patient in the morning. Follow labs in a.m. Aggressive fluid resuscitation will be instituted. cc: George Beard MD [facility]
[2020-01-09] MEDS: LOVENOX SUBQ SCH (22:24)
[2020-01-09] MEDS: NS 1,000 ML IV SCH (22:24)
[2020-01-09] MEDS: TYLENOL PO SCH (22:25)
[2020-01-09] MEDS: TORADOL IV SCH (22:26)
[2020-01-09] MEDS: DILAUDID IV PRN (22:29)
[2020-01-09] MEDS: PERICOLACE PO SCH (22:29)
[2020-01-09] MEDS: XYLOCAINE 2% VISCOUS MT ONE ×2 (23:05→23:43)
[2020-01-10] MEDS: DILAUDID IV PRN ×7 (01:24→21:09)
[2020-01-10] MEDS: NS 1,000 ML IV SCH ×2 (03:45→09:00)
[2020-01-10] MEDS: TYLENOL PO SCH ×4 (03:46→21:07)
[2020-01-10] MEDS: TORADOL IV SCH ×3 (03:47→15:05)
[2020-01-10 08:14] LABS: HEMATOCRIT 22.6 % (42.0-52.0); HEMOGLOBIN 7.6 g/dL (14.0-18.0); MCH 30.9 PG (27-31); MCHC 33.6 g/dL (33-37); MCV 91.9 FL (81-99); MPV 10.4 FL (7.4-10.4); PLT 443 X1000 (130-400); RBC 2.46 XMIL (4.7-6.1); RDW 17.3 % (11.5-14.5); WBC 22.72 X1000 (4.8-10.8)
[2020-01-10 08:25] LABS: AGAP 11; BUN 10 mg/dL (8-22); CALCIUM 8.6 mg/dL (8.8-10.2); CHLORIDE 108 mmol/L (98-107); COSMO 276; CREATININE 0.7 mg/dL (0.7-1.2); ESTIMATED GFR > 60; GLUCOSE 92 mg/dL (70-104); POTASSIUM 3.8 mmol/L (3.5-5.1); SODIUM 139 mmol/L (136-145); TCO2 20 mmol/L (25-35)
[2020-01-10 08:29] LABS: BANDS 6 % (0-1); LYMPHS 20 % (21-51); MONO 12 % (1-9); NRBC 1 % (0-0); SEGS 58 % (42-75)
[2020-01-10 08:33] LABS: ANISOCYTOSIS 1+; HYPOCHROM 1+; POIKILOCYTOSIS 1+; SICKLE CELLS OCCASIONAL
[2020-01-10] MEDS: KLOR-CON PO SCH (09:02)
[2020-01-10] MEDS: PERICOLACE PO SCH ×2 (09:02→21:07)
[2020-01-10] MEDS: FOLIC ACID PO SCH (09:02)
[2020-01-10] MEDS ORDERED: CHLORASEPTIC SPRAY MT PRN (11:02)
[2020-01-10 13:50] LABS: HEMATOCRIT 23.8 % (42.0-52.0)
--- NOTE | 2020-01-10 14:14 | PROGRESS NOTE ---
DATE: 01/10/2020 INTERVAL HISTORY: The patient is still with some diffuse pain, a sore throat, but slightly improved from previous. No dyspnea. Minimal cough which is nonproductive. No new complaints. No acute events overnight. REVIEW OF SYSTEMS: Twelve point review of systems negative except as per interval history. LABS: WBC 22.7, hemoglobin 7.6, hematocrit 22.6, platelets 443,000. Sodium 139, potassium 3.8, BUN 10, creatinine 0.7. Urinalysis unremarkable. IMAGING: CT of the abdomen and pelvis with a little bit of fatty liver but no acute process. Chest x-ray with no acute process. VITALS: T-max 100.0 degrees, pulse 107, respirations 18, blood pressure 130/83, O2 saturation 96% on room air. PHYSICAL EXAMINATION: General: No acute distress. Vitals: As above. HEENT: Normocephalic, atraumatic. Moist mucous membranes. No cervical adenopathy. Cardiovascular: Slightly tachycardic but regular. No murmurs noted. Pulmonary: Clear to auscultation bilaterally. No wheezing, rales, or rhonchi. Good air entry throughout. Abdomen: Soft, nontender, nondistended. Bowel sounds positive. Extremities: Peripheral pulses intact. No clubbing or cyanosis. Neurologic: Cranial nerves grossly intact. No focal deficits identified. Psychiatric: Normal mood and affect. Awake, alert, oriented x3. ASSESSMENT AND PLAN: 1. Sickle cell crisis, improving slowly. Bilirubin on admission pretty significantly up, fairly high reticulocyte count. All consistent with sickle crisis. Continue hydration and symptomatic care. 2. Anemia, likely related to sickle cell disease and current crisis but did have a pretty significant drop in hemoglobin and hematocrit. We will repeat blood counts this afternoon to make sure that transfusion is not needed, but we will try to avoid that if possible. 3. Likely viral pharyngitis/upper respiratory infection. The patient was put on Rocephin empirically initially, pending streptococcus swab. Streptococcus swab now back and negative so almost certainly viral. We will discontinue Rocephin at this time. This may have been the precipitating factor for his sickle cell crisis. 4. Fatty liver noted.
[2020-01-10] MEDS ORDERED: SODIUM CHLORIDE 0.9% INJ ONE (15:56)
[2020-01-10] MEDS ORDERED: BENADRYL IV ONE (15:56)
[2020-01-10] MEDS ORDERED: PEPCID IV ONE (15:56)
[2020-01-10] MEDS ORDERED: NS 1,000 ML ONE (16:05)
--- NOTE | 2020-01-10 18:16 | HEMO/ONC CONSULTATION ---
DATE: 01/10/2020 ADMITTING PHYSICIAN: Dr. Beard. REQUESTING PHYSICIAN: Dr. Beard. We appreciate this consult. CHIEF COMPLAINT: Sickle cell crisis. HISTORY OF PRESENT ILLNESS: Mr. Crawford is a pleasant 29-year-old male with a history of sickle cell disease. He is well known to Dr. Porras and is followed in clinic regularly. The patient is currently on Hydrea with good compliance. The patient presented to [facility] the day of admission secondary to reports of significant sore throat with body aches covering his whole body. The patient did have an elevated temperature of 100.1 and reported a fever of 104 the day prior. The patient was referred to [facility] where he presented and was thought to be in sickle cell crisis. The patient was admitted for the same. We are consulted as Mr. Crawford is well known to us. PAST MEDICAL HISTORY: Sickle cell disease. PAST SURGICAL HISTORY: Cholecystectomy . FAMILY HISTORY: Significant for sickle cell disease in the patient's father and sickle cell trait in the patient's mother. SOCIAL HISTORY: The patient does not smoke cigarettes, drink alcohol or take illicit drugs. MEDICATIONS ON ADMISSION: 1. Flexeril. 2. Folic acid. 3. Oxycodone. 4. Potassium chloride. 5. Senna Plus. ALLERGIES: Prednisone. REVIEW OF SYSTEMS: A 14 point review of systems was obtained and is negative except for mentioned in HPI . PHYSICAL EXAMINATION: Mr. Crawford is a pleasant 29-year-old male lying supine in bed in no immediate distress.HEENT: Normocephalic, atraumatic. Mucous membranes are pale and moist. Sclerae is icteric. Extraocular movements intact. Neck: Supple. Lungs: Clear to auscultation bilaterally. Chest expansion is equal bilaterally. CV: S1-S2 is heard without murmur, rub or gallop. Abdomen: Nondistended. Extremities: No clubbing, cyanosis or edema. Dermatologic: No rashes, bruises or lesions. Neuro: The patient is awake, alert and oriented x3 has no focal deficit. LABORATORY DATA: Hemoglobin 7.6, hematocrit 22.6, white blood cell count is 22.72, platelets 443,000. Sodium 139, potassium 3.8, chloride 108, CO2 is 20, BUN 10, creatinine 0.7, glucose 92, bilirubin 3.23, alkaline phosphatase 174, AST 51, ALT 38. CT of the abdomen and pelvis reveal cholecystectomy and fatty liver disease. ASSESSMENT AND PLAN: 1. Sickle cell disease with crisis. Would continue current pain regimen. 2. Acute pharyngitis on ceftriaxone prophylactically. 3. Anemia secondary to #1. Hemoglobin is currently 7.6. We will transfuse 1 unit packed red blood cells at this time. 4. We will follow along with you and make further recommendations pending outcomes. The above reflects the history, exam, assessment and plan of Dr. Porras. Dictated by GUILLERMINA Echols for Rafi Porras MD cc: GUILLERMINA Echols MD
[2020-01-10] MEDS ORDERED: ROCEPHIN 1 GM in NS 50 ML IV SCH (21:00)
[2020-01-10] MEDS: ZOFRAN IV PRN (21:08)
[2020-01-10] MEDS: LOVENOX SUBQ SCH (21:08)
[2020-01-11] MEDS: DILAUDID IV PRN ×7 (00:07→23:42)
[2020-01-11] MEDS: ZOFRAN IV PRN (04:15)
[2020-01-11] MEDS: TYLENOL PO SCH ×5 (04:18→21:00)
[2020-01-11] MEDS: FOLIC ACID PO SCH ×2 (07:54→10:19)
[2020-01-11] MEDS: KLOR-CON PO SCH ×2 (07:54→10:20)
[2020-01-11] MEDS: PERICOLACE PO SCH ×3 (07:55→21:00)
[2020-01-11 08:53] LABS: HEMOGLOBIN 8.1 g/dL (14.0-18.0); MCH 30.7 PG (27-31); MCHC 33.8 g/dL (33-37); MCV 90.9 FL (81-99); MPV 10.4 FL (7.4-10.4); PLT 434 X1000 (130-400); RBC 2.64 XMIL (4.7-6.1); RDW 17.5 % (11.5-14.5); WBC 22.45 X1000 (4.8-10.8)
[2020-01-11 09:03] LABS: AGAP 12; ALB/GLOB RATIO 0.6; ALBUMIN 2.9 g/dL (3.5-5.0); ALKALINE PHOSPHATASE 156 U/L (32-122); BUN 4 mg/dL (8-22); CALCIUM 8.4 mg/dL (8.8-10.2); CHLORIDE 106 mmol/L (98-107); COSMO 274; CREATININE 0.6 mg/dL (0.7-1.2); ESTIMATED GFR > 60; GLUCOSE 86 mg/dL (70-104); GOT 27 U/L (10-34); GPT 21 U/L (10-44); POTASSIUM 3.6 mmol/L (3.5-5.1); SODIUM 139 mmol/L (136-145); TCO2 21 mmol/L (25-35); TOTAL BILIRUBIN 2.59 mg/dL (0.20-1.00); TOTAL PROTEIN 7.9 g/dL (6.3-8.3)
[2020-01-11 11:09] LABS: ANISOCYTOSIS 2+; EOS 2 % (1-10); HYPOCHROM 2+; LYMPHS 48 % (21-51); MONO 10 % (1-9); POIKILOCYTOSIS 2+; SEGS 40 % (42-75); SICKLE CELLS OCCASIONAL; TARGET CELLS 1+
[2020-01-11] MEDS: PERCOCET-10 PO PRN ×2 (14:26→20:59)
--- NOTE | 2020-01-11 15:10 | PROGRESS NOTE ---
DATE: 01/11/2020 INTERVAL HISTORY: The patient's pain is improving slowly. Laboratory indications of sickle crisis also improving. No new complaints. No acute events overnight. Still with a little bit of sore throat, but no worse than previous. REVIEW OF SYSTEMS: A 12-point review of systems is negative, except as per interval history. LABORATORY DATA: WBC 22.4, hemoglobin 8.1, hematocrit 24.0, platelets 434,000. Sodium 139, potassium 3.6, BUN 4, creatinine 0.6. Bilirubin 2.59 (decreased from 3.23), alkaline phosphatase 156 (down from 174). OBJECTIVE: Vital Signs: T-max 98 degrees, pulse 79, respirations 20, blood pressure 122/79, O2 saturation 93% on room air. General: No acute distress. HEENT: Normocephalic, atraumatic. Moist mucous membranes. No cervical adenopathy. Modest posterior pharynx erythema noted without exudates or edema. Cardiovascular: Regular rate and rhythm currently. No murmurs noted. Pulmonary: Clear to auscultation bilaterally. No wheezing, rales, or rhonchi. Good air entry is noted throughout. Abdomen: Soft, nontender, nondistended. Bowel sounds positive. Extremities: Peripheral pulses intact. No clubbing or cyanosis. Neurologic: Cranial nerves grossly intact. No focal deficits identified. Psychiatric: Normal mood and affect. Awake, alert, and oriented x3. ASSESSMENT AND PLAN: 1. Sickle cell crisis. Continues to improve. Blood counts are now stable. Bilirubin and alkaline phosphatase are trending down. The patient's pain is improving. Currently on home fentanyl patch and intravenous Dilaudid. Will begin transitioning back to his oral oxycodone, and weaning Dilaudid. If he continues to improve, hopefully he can be discharged in another day or two. 2. Anemia, likely related to sickle cell. Had a little bit of a drop just after admission, but has been pretty stable since then. Monitor labs. 3. Likely viral pharyngitis/upper respiratory infection. The patient was put on Rocephin initially because of concerns for strep, but strep swab negative, so likely viral. Off of Rocephin and doing well. 4. Fatty liver. Noted.
[2020-01-11] MEDS ORDERED: DURAGESIC 50 MICROGM/HR PATCH TD SCH (17:45)
[2020-01-11] MEDS: LOVENOX SUBQ SCH (21:01)
[2020-01-12] MEDS: PERCOCET-10 PO PRN ×3 (03:52→19:13)
[2020-01-12] MEDS: TYLENOL PO SCH ×4 (03:53→21:57)
[2020-01-12] MEDS: DILAUDID IV PRN ×3 (06:38→21:57)
[2020-01-12] MEDS: PERICOLACE PO SCH ×2 (08:44→21:38)
[2020-01-12] MEDS: KLOR-CON PO SCH (08:44)
[2020-01-12] MEDS: FOLIC ACID PO SCH (08:44)
[2020-01-12 08:59] LABS: BASO# 0.15 X1000 (0.0-0.2); BASO% 0.7 % (0.0-0.8); EOS# 0.39 X1000 (0.0-0.7); EOS% 1.7 % (0.0-10.0); HEMATOCRIT 24.5 % (42.0-52.0); HEMOGLOBIN 8.2 g/dL (14.0-18.0); IMM GRAN% 0.4 % (0.0-0.5); LYMPH% 38.6 % (20.5-51.1); MCH 30.3 PG (27-31); MCHC 33.5 g/dL (33-37); MCV 90.4 FL (81-99); MONO# 2.69 X1000 (0.11-0.59); MONO% 12.1 % (1.7-9.3); MPV 9.9 FL (7.4-10.4); NEUT# 10.36 X1000 (1.4-6.5); NEUT% 46.5 % (42.2-75.2); PLT 507 X1000 (130-400); RBC 2.71 XMIL (4.7-6.1); RDW 17.5 % (11.5-14.5); WBC 22.29 X1000 (4.8-10.8)
[2020-01-12 09:16] LABS: AGAP 14; ALB/GLOB RATIO 0.6; ALBUMIN 3.2 g/dL (3.5-5.0); ALKALINE PHOSPHATASE 152 U/L (32-122); BUN 4 mg/dL (8-22); CALCIUM 8.7 mg/dL (8.8-10.2); CHLORIDE 99 mmol/L (98-107); COSMO 266; CREATININE 0.6 mg/dL (0.7-1.2); ESTIMATED GFR > 60; GLUCOSE 82 mg/dL (70-104); GOT 29 U/L (10-34); GPT 21 U/L (10-44); POTASSIUM 3.4 mmol/L (3.5-5.1); SODIUM 135 mmol/L (136-145); TCO2 22 mmol/L (25-35); TOTAL BILIRUBIN 2.21 mg/dL (0.20-1.00); TOTAL PROTEIN 8.3 g/dL (6.3-8.3)
--- NOTE | 2020-01-12 09:21 | PROGRESS NOTE ---
DATE: 01/12/2020 SUBJECTIVE: The patient reports still having pain all over, and he has not tried still his oral medication for pain, in this case Percocet. OBJECTIVE: Vital Signs: Temperature 98.9 degrees, heart rate 92, respiratory rate 18, blood pressure 126/82, O2 saturation 96% on room air. General: This is a 29-year-old, male, lying in bed in no acute distress. Cardiovascular: S1, S2 heard. No murmurs, gallops, or rubs. Regular rate and rhythm. Respiratory: Clear bilaterally to auscultation. No work of breathing or using accessory muscles. Abdomen: Soft, nontender to palpation. Bowel sounds present. No organomegaly. Extremities: No clubbing, cyanosis, or edema. Peripheral pulses present in both legs. Neurological: The patient is alert and oriented x3. Moves all 4 extremities. LABORATORY DATA: Pending at the time of my dictation. ASSESSMENT AND PLAN: 1. Sickle cell crisis. The patient reports that he is improving, although he is still needing intravenous pain medication. Labs are pretty much pending from this morning. I explained to the patient that he needs to use his oral pain medications instead of intravenously unless he is in excruciating pain. I will reduce the doses of Dilaudid from 1 to 0.5 mg intravenously every 6 hours. Will increase the doses of Percocet to 1 to 2 tablets of Percocet 10 every 6 hours as needed. Will see how this patient does. 2. 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 Hemoglobin is stable so far. 3. Fatty liver disease. Noted. 4. Disposition. I think if this patient is feeling better and using oral medications instead of intravenous and he is able to control his pain, then will discharge him tomorrow. cc: Michael Mendoza MD MTDD
[2020-01-12 11:15] LABS: BANDS 2 % (0-1); EOS 2 % (1-10); LYMPHS 50 % (21-51); MONO 10 % (1-9); NRBC 1 % (0-0); SEGS 36 % (42-75)
[2020-01-12 11:16] LABS: POIKILOCYTOSIS 2+; TARGET CELLS 1+
[2020-01-12] MEDS: LOVENOX SUBQ SCH (21:57)
[2020-01-13] MEDS: PERCOCET-10 PO PRN ×2 (00:51→08:36)
[2020-01-13] MEDS: DILAUDID IV PRN (04:45)
[2020-01-13] MEDS: TYLENOL PO SCH ×2 (04:45→10:25)
[2020-01-13 08:07] LABS: AGAP 12; ALB/GLOB RATIO 0.6; ALBUMIN 3.3 g/dL (3.5-5.0); ALKALINE PHOSPHATASE 160 U/L (32-122); BUN 6 mg/dL (8-22); CALCIUM 8.8 mg/dL (8.8-10.2); CHLORIDE 101 mmol/L (98-107); COSMO 269; CREATININE 0.5 mg/dL (0.7-1.2); ESTIMATED GFR > 60; GLUCOSE 94 mg/dL (70-104); GOT 30 U/L (10-34); GPT 19 U/L (10-44); POTASSIUM 3.9 mmol/L (3.5-5.1); SODIUM 136 mmol/L (136-145); TCO2 23 mmol/L (25-35); TOTAL BILIRUBIN 2.21 mg/dL (0.20-1.00); TOTAL PROTEIN 8.8 g/dL (6.3-8.3)
[2020-01-13 08:25] LABS: BASO# 0.11 X1000 (0.0-0.2); BASO% 0.6 % (0.0-0.8); EOS# 0.38 X1000 (0.0-0.7); EOS% 1.9 % (0.0-10.0); HEMATOCRIT 25.8 % (42.0-52.0); HEMOGLOBIN 8.6 g/dL (14.0-18.0); IMM GRAN% 0.5 % (0.0-0.5); LYMPH# 6.31 X1000 (1.2-3.4); LYMPH% 31.8 % (20.5-51.1); MCH 30.4 PG (27-31); MCHC 33.3 g/dL (33-37); MCV 91.2 FL (81-99); MONO# 3.02 X1000 (0.11-0.59); MONO% 15.2 % (1.7-9.3); MPV 10.2 FL (7.4-10.4); PLT 595 X1000 (130-400); RBC 2.83 XMIL (4.7-6.1); RDW 17.6 % (11.5-14.5); WBC 19.82 X1000 (4.8-10.8)
[2020-01-13] MEDS: KLOR-CON PO SCH (08:36)
[2020-01-13] MEDS: FOLIC ACID PO SCH (08:36)
[2020-01-13] MEDS: PERICOLACE PO SCH (08:36)
[2020-01-13 11:40] VITALS: BP 123/92
--- NOTE | 2020-01-13 21:43 | DISCHARGE SUMMARY ---
ADMISSION DATE: 01/09/2020 DISCHARGE DATE: 01/13/2020 PRIMARY CARE PROVIDER: Dr. Porras. PERTINENT PROCEDURES: Cholecystectomy, fatty infiltration of the liver. DISCHARGE DIAGNOSES: 1. Sickle cell crisis, resolved. Continue to follow Dr. Porras. 2. 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 Hemoglobin and hematocrit stable. He did receive 1 unit of PRBCs. 3. Fatty liver disease noted. HOSPITAL COURSE: Briefly, Mr. Crawford is a 29-year-old male known to our service for sickle cell disease, went to his rn sane's office down the day admission with a 4-day history of sore throat, diffuse body aches consistent with his normal crisis pain. He was admitted for acute pharyngitis versus viral or acute pharyngitis, viral versus bacterial, as well as sickle cell crisis and anemia. He was transfused with 1 unit of PRBCs, started on IV antibiotics. He was followed by Dr. Porras. He was weaned off his IV pain medication, re- initiated back in his p.o. medication and will be discharged back home today. VITAL SIGNS: Temp 99.7 degrees, heart rate 89, respirations 20, blood pressure 122/64, O2 is 97% on room air. FOLLOWUP: Mr. Crawford is being discharged back home with self care. He is to continue follow up with Dr. Porras. He can return to the ED or call 911 for any worsening of symptoms. DISCHARGE MEDICATIONS: 1. Fentanyl patch 50 mcg subdermal q. 3 days. 2. Flexeril 5 mg p.o. at bedtime. 3. Folic acid 1 mg p.o. daily. 4. Potassium 20 mEq p.o. daily. 5. Percocet 10, 1 to 2 each p.o. q. 6 hours p.r.n. x30 tabs. 6. Verito-Colace 1 each p.o. b.i.d. Dictated by GUILLERMINA Roca for Michael Mendoza MD Addendum: Patient seen and examined by myself. Agree with GUILLERMINA note. It reflects my assessment and plan. Patient is being discharged in stable condition and will be seen by PCP in a week. cc: Michael Mendoza MD [facility]
== END 2020-01-13 12:38 | disposition home or self-care (01) | DRG 812 ==
LOC: ED 12:54 → 3N 21:25 → SUATTDRO 21:25 → OBSVTOIN 21:25 → INTOOBSV 21:25 → 3N 21:34
PROVIDERS: ATTEND Internal Medicine